=== PATIENT | female | born 1990 | race Hispanic/Latino ===

== ENCOUNTER 2019-12-28 09:09 | Inpatient (IN) | payer MEDICAID, OTHER ==
[~2019-12-28] VITALS: Ht 160 cm; Wt 54.7 kg
[2019-12-28] VITALS (19 sets, daily range): BP systolic 86–161; BP diastolic 41–108
[2019-12-28] MEDS ORDERED: FOSPHENYTOIN SODIUM 500 MG/10ML VIAL IJ ONE (09:26)
[2019-12-28] MEDS ORDERED: ONDANSETRON HCL 4 MG/2 ML VIAL ONE (09:26)
[2019-12-28] MEDS ORDERED: SODIUM CHLORIDE 0.9% 1000ML 1,000 ML IV ONE (09:27)
[2019-12-28 09:29] LABS: BASOPHILS % (AUTO) 0.1 % (0.0-5.0); LYMPHOCYTES % (AUTO) 4.6 % (21.0-51.0); MEAN CORPUSCULAR HEMOGLOBIN 31.2 pg (27.0-33.0); MEAN CORPUSCULAR HGB CONC 32.5 g/dL (32.0-36.0); MEAN CORPUSCULAR VOLUME 95.9 fL (79-99); MONOCYTES % (AUTO) 3.8 % (3.0-13.0); NEUTROPHILS % (AUTO) 90.7 % (40.0-77.0); PLATELET COUNT (AUTO) 319 K/uL (130-400); RED BLOOD CELL COUNT(AUTO) 4.59 MIL/uL (4.00-5.50); RED CELL DISTRIBUTION WIDTH 13.1 % (11.0-15.5); WHITE BLOOD COUNT (AUTO) 15.3 K/uL (4.8-10.8)
[2019-12-28 09:36] LABS: APPEARANCE,URINE CLEAR (CLEAR); BILIRUBIN,URINE Negative (NEGATIVE); COLOR,URINE Yellow (YELLOW); GLUCOSE, URINE (UA) Negative (NEGATIVE); KETONES,URINE 15 mg/dL (NEGATIVE); LEUKOCYTE ESTERASE ,URINE Negative (NEGATIVE); NITRATE,URINE Negative (NEGATIVE); OCCULT BLOOD,URINE Negative (NEGATIVE); PROTEIN,URINE POS 1+ mg/dL (NEGATIVE); UROBILINOGEN,URINE 0.2 mg/dL (0.2-1.0)
[2019-12-28 09:38] LABS: AMPHET/METH SCREEN,URINE NEGATIVE (NEGATIVE); BARBITURATE SCREEN, URINE NEGATIVE (NEGATIVE); BENZODIAZEPINES SCREEN,URINE POSITIVE (NEGATIVE); CANNABINOID SCREEN,URINE NEGATIVE (NEGATIVE); COCAINE SCREEN,URINE NEGATIVE (NEGATIVE); OPIATE SCREEN,URINE NEGATIVE (NEGATIVE); PHENCYCLIDINE SCREEN,URINE NEGATIVE (NEGATIVE)
[2019-12-28 09:51] LABS: ALBUMIN 4.4 g/dL (3.5-5.0); BILIRUBIN,DIRECT 0.2 mg/dL (0.0-0.3); BILIRUBIN,TOTAL 0.6 mg/dL (0.2-1.0); CREATININE 1.3 mg/dL (0.5-1.5); TOTAL PROTEIN, SERUM 9.6 g/dL (6.0-8.3)
[2019-12-28 10:01] LABS: BACTERIA,URINE Rare /HPF (None Seen); RBC,URINE 0-1 /HPF (0-1); SQUAMOUS EPITHELIAL CELL,UR Rare /HPF (0-2); WBC,URINE 0-1 /HPF (0-1)
[2019-12-28] MEDS ORDERED: LORAZEPAM 2 MG/ML 1 ML VIAL ONE (10:21)
[2019-12-28] MEDS ORDERED: PROPOFOL 1000 MG/100 ML 100 ML IV ONE (10:46)
[2019-12-28] MEDS ORDERED: POTASSIUM CHLORIDE 20MEQ/100ML 100 ML IV ONE (10:46)
[2019-12-28] MEDS ORDERED: MAGNESIUM 2GM PREMIX 50ML 50 ML IV ONE (10:46)
[2019-12-28] MEDS ORDERED: CEFTRIAXONE SODIUM 2 GM VIAL ONE (11:18)
[2019-12-28] MEDS ORDERED: SODIUM CHLORIDE 0.9% 100 ML IV ONE (11:18)
[2019-12-28] MEDS ORDERED: ETOMIDATE 2 MG/ML 10 ML VIAL ONE (12:00)
[2019-12-28] MEDS ORDERED: ROCURONIUM BROMIDE 10MG/1ML 5ML VL ONE (12:00)
[2019-12-28] MEDS ORDERED: SODIUM CHLORIDE 0.9% 1000ML 1,000 ML IV SCH (12:29)
[2019-12-28] MEDS ORDERED: HYDRALAZINE HCL 20 MG/ML VIAL IV PRN (12:30)
[2019-12-28] MEDS ORDERED: ONDANSETRON HCL 4 MG/2 ML VIAL IV PRN (12:30)
[2019-12-28] MEDS ORDERED: ACETAMINOPHEN 325 MG TAB PO PRN (12:30)
[2019-12-28 13:07] LABS: ABG BASE EXCESS -4.9 mmol/L (-2.0-3.0); ABG HCO3 18.5 mmol/L (21.0-28.0); ABG OXYGEN SATURATION 99.9 % (95.0-99.0); ABG PCO2 30 mmHg (32-45)
[2019-12-28 13:30] LABS: PHOSPHORUS 4.1 mg/dL (2.5-4.9)
[2019-12-28] MEDS ORDERED: ZOSYN 3.375GM+NS 50ML 50 ML IV ONE (15:47)
[2019-12-28] MEDS ORDERED: ZOSYN 3.375GM+NS 50ML 50 ML IV SCH (16:00)
[2019-12-28] MEDS: PROPOFOL 1000 MG/100 ML 100 ML IV SCH ×2 (17:08→20:49)
[2019-12-28] MEDS ORDERED: LIDOCAINE HCL-MPF 1% 2ML VIAL IV PRN (17:15)
[2019-12-28] MEDS ORDERED: MAGNESIUM 2GM PREMIX 50ML 50 ML IV PRN (17:15)
[2019-12-28] MEDS ORDERED: POTASSIUM CHLORIDE 20MEQ/100ML 100 ML IV PRN (17:15)
[2019-12-28] MEDS ORDERED: FENTANYL CITRATE PF 0.05 MG/ML 1,000 MCG in SODIUM CHLORIDE 0.9% 100 ML PRN (17:15)
[2019-12-28] MEDS ORDERED: FENTANYL 1000MCG+NS 100ML 100 ML ONE (17:40)
[2019-12-28] MEDS ORDERED: LACTATED RINGERS 1000ML 1,000 ML IV ONE (17:41)
[2019-12-28] MEDS: LACTATED RINGERS 1000ML 1,000 ML IV SCH (18:59)
[2019-12-28] MEDS ORDERED: COMPOUND IV MISC 1 EACH IVSOLN MISC PRN (19:00)
--- NOTE | 2019-12-28 19:45 | NUR ---
UPDATE UPON ARRIVAL PT AWAKE RESTLESS ATTEMPTING TO REMOVE ETT. PT NOT RESPONDING TO IV FENTANYL/PROPOFOL SEDATION DESPITE TITRATE UP UNTO MAX DOSE. CONSTANT OBSERVATION NEEDED TO PREVENT PT FROM REMOVING ETT TUBE/LINES. PULMONOLOGY GROUP A-OK PAGED SEVERAL TIME W MESSAGE LEFT TO RETURN CALL. HOSPITALIST MARIBELL BOYD ALSO PAGED AWAITING CALL BACK. DEPARTURE CLERK LINDA MADE AWARE UNABLE TO CONTACT DR. CHASE WITH NUMBERS WE HAVE- NEW NUMBER PROVIDED, CALLED AND VOICE MESSAGE LEFT TO RETURN CALL. [address] CHASE INFORMED OF PT CONDITION/MEDS/AND CRITICAL LABS- NEW ORDERS RECEIVED AND IMPLEMENTED. SPOKE WITH PT MOTHER MITCH GOLDSTEIN, INFORMED HER OF PT CONDITION AND EXAM DR. CHASE ORDERED- TELEPHONE CONSENT RECEIVED FOR CT ABD/PELVIS W CONTRAST. PT LESS RESTLESS WITH ADDITIONAL IV SEDATION. WILL CONTINUE TO MONITOR.
[2019-12-28] MEDS ORDERED: FAMOTIDINE/PF 20 MG/2 ML VIAL IV SCH ×2 (21:00)
[2019-12-28] MEDS ORDERED: SODIUM CHLORIDE 0.9% IVP PRN (21:00)
[2019-12-28] MEDS ORDERED: LORAZEPAM IVP PRN (21:00)
[2019-12-28] MEDS: POTASSIUM CHLORIDE 20MEQ/100ML 100 ML IV PRN (21:14)
[2019-12-28] MEDS: THIAMINE HCL 100 MG/ML 2ML VIAL IVP SCH (21:14)
[2019-12-28] MEDS ORDERED: PHARMACY COMMUNICATION MISC SCH (21:15)
[2019-12-28] MEDS ORDERED: VECURONIUM BROMIDE 10 MG ML IV PRN (21:15)
[2019-12-28] MEDS: FENTANYL 1000MCG+NS 100ML IV.SOLN IV SCH (21:24)
[2019-12-28] MEDS: LEVETIRACETAM 1,000 MG in SODIUM CHLORIDE 0.9% 100 ML IV SCH (21:25)
[2019-12-28] MEDS ORDERED: COMPOUND NARC IV MISC 1 EACH IVSOLN MISC PRN (22:00)
[2019-12-28] MEDS: DEXMEDETOMIDINE HCL 400 MCG in SODIUM CHLORIDE 0.9% 96 ML IV PRN (22:12)
[2019-12-28] MEDS ORDERED: NOREPINEPHRINE 4MG/NS 250ML 250 ML IV ONE (23:27)
[2019-12-28] MEDS: NOREPINEPHRINE 4MG/NS 250ML 250 ML IV PRN (23:42)
[2019-12-29] VITALS (50 sets, daily range): BP systolic 89–123; BP diastolic 40–75
[2019-12-29] MEDS: FENTANYL 1000MCG+NS 100ML IV.SOLN IV SCH ×3 (00:38→08:48)
[2019-12-29] MEDS: PROPOFOL 1000 MG/100 ML 100 ML IV SCH (03:15)
[2019-12-29 05:20] LABS: BASOPHILS % (AUTO) 0.1 % (0.0-5.0); HEMATOCRIT 34.6 % (36-48); LYMPHOCYTES % (AUTO) 20.9 % (21.0-51.0); MEAN CORPUSCULAR HEMOGLOBIN 31.7 pg (27.0-33.0); MEAN CORPUSCULAR HGB CONC 34.4 g/dL (32.0-36.0); MEAN CORPUSCULAR VOLUME 92.3 fL (79-99); MONOCYTES % (AUTO) 8.4 % (3.0-13.0); NEUTROPHILS % (AUTO) 70.1 % (40.0-77.0); PLATELET COUNT (AUTO) 293 K/uL (130-400); RED BLOOD CELL COUNT(AUTO) 3.75 MIL/uL (4.00-5.50); RED CELL DISTRIBUTION WIDTH 13.2 % (11.0-15.5); WHITE BLOOD COUNT (AUTO) 14.6 K/uL (4.8-10.8)
[2019-12-29 05:40] LABS: ALBUMIN 3.2 g/dL (3.5-5.0); CREATININE 0.7 mg/dL (0.5-1.5); MAGNESIUM 2.4 mg/dL (1.80-2.40); POTASSIUM 3.7 mmol/L (3.5-5.1)
[2019-12-29] MEDS: DEXMEDETOMIDINE HCL 400 MCG in SODIUM CHLORIDE 0.9% 96 ML IV PRN (06:16)
[2019-12-29] MEDS: LEVETIRACETAM 1,000 MG in SODIUM CHLORIDE 0.9% 100 ML IV SCH ×3 (06:16→22:29)
[2019-12-29] MEDS ORDERED: DIATR MEGLU/DIATRIZOATE SODIUM 30 ML BOTTLE ONE (08:29)
[2019-12-29] MEDS: LACTATED RINGERS 1000ML 1,000 ML IV SCH (08:42)
[2019-12-29] MEDS: THIAMINE HCL 100 MG/ML 2ML VIAL IVP SCH (08:43)
[2019-12-29] MEDS: ENOXAPARIN SODIUM 40 MG/0.4 ML SYRINGE SQ SCH (08:43)
[2019-12-29] MEDS: NOREPINEPHRINE 4MG/NS 250ML 250 ML IV PRN (08:49)
[2019-12-29] MEDS ORDERED: ENOXAPARIN SODIUM 30 MG/0.3 ML SQ SCH (09:00)
[2019-12-29] MEDS ORDERED: PANTOPRAZOLE 40 MG/VIAL IVP SCH (09:00)
--- NOTE | 2019-12-29 09:00 | NUR ---
PT IS SEDATED/INTUBATED. NO SEIZURE ACTIVITY.COVID WILL BE RESENT FOR RAPID TESTING AT THIS TIME. SEIZURE PRECAUTIONS. PUPILS SLUGGISH SIZE 3
[2019-12-29] MEDS ORDERED: PHARMACY COMMUNICATION MISC SCH (10:30)
--- NOTE | 2019-12-29 10:44 | NUR ---
ROSALINDA PLAN PATIENT IN ICU VENTED GUARDED CONDITION. CM WILL CONTINUE TO FOLLOW. Addendum: 12/29/19 at 1045 by MORIAH FITZGERALD RN CM Amended: Links added.
[2019-12-29] MEDS ORDERED: ALPR2TAB2 PO (10:51)
[2019-12-29] MEDS ORDERED: GABA300S PO (10:51)
[2019-12-29] MEDS ORDERED: LACOSAMIDE 50 MG in SODIUM CHLORIDE 0.9% 50 ML IV SCH ×2 (12:46→21:00)
[2019-12-29] MEDS ORDERED: IOHEXOL-350 75 ML VIAL IV ONE (12:50)
[2019-12-29] MEDS ORDERED: LACOSAMIDE 200 MG/20 ML VIAL IV SCH (13:15)
--- NOTE | 2019-12-29 14:30 | NUR ---
1405 SEDATION OFF, PT EXTUBATED, AFTER BEING ABLE TO TAKE DEEP BREATHS, AND FOLLOWING COMMANDS
[2019-12-29] MEDS ORDERED: LORAZEPAM 2 MG/ML 1 ML VIAL IVP PRN (17:30)
[2019-12-29] MEDS: THIAMINE HCL 100 MG TABLET PO SCH (21:00)
[2019-12-29] MEDS: ONDANSETRON HCL 4 MG/2 ML VIAL IV SCH (21:00)
[2019-12-29] MEDS: ALPRAZOLAM 1 MG TAB PO SCH (22:00)
[2019-12-29] MEDS: ZOSYN 3.375GM+NS 50ML 50 ML IV SCH (22:24)
[2019-12-29] MEDS: LACOSAMIDE 200 MG/20 ML VIAL IV SCH (23:20)
[2019-12-30 04:08] VITALS: BP 106/62
[2019-12-30 04:47] LABS: BASOPHILS % (AUTO) 0.4 % (0.0-5.0); EOSINOPHILS % (AUTO) 0.7 % (0.0-8.0); HEMATOCRIT 31.6 % (36-48); MEAN CORPUSCULAR HEMOGLOBIN 30.7 pg (27.0-33.0); MEAN CORPUSCULAR HGB CONC 32.6 g/dL (32.0-36.0); MEAN CORPUSCULAR VOLUME 94.3 fL (79-99); MONOCYTES % (AUTO) 7.8 % (3.0-13.0); NEUTROPHILS % (AUTO) 53.7 % (40.0-77.0); PLATELET COUNT (AUTO) 146 K/uL (130-400); RED BLOOD CELL COUNT(AUTO) 3.35 MIL/uL (4.00-5.50); RED CELL DISTRIBUTION WIDTH 13.2 % (11.0-15.5); WHITE BLOOD COUNT (AUTO) 5.5 K/uL (4.8-10.8)
[2019-12-30 05:12] LABS: ALBUMIN 2.8 g/dL (3.5-5.0); BILIRUBIN,TOTAL 1.1 mg/dL (0.2-1.0); CREATININE 0.5 mg/dL (0.5-1.5); CRP QUANTITATIVE 107.3 mg/L (0.00-9.0); MAGNESIUM 2.2 mg/dL (1.80-2.40); PHOSPHORUS 3.6 mg/dL (2.5-4.9); POTASSIUM 3.3 mmol/L (3.5-5.1); TOTAL PROTEIN, SERUM 6.3 g/dL (6.0-8.3)
[2019-12-30] MEDS: ALPRAZOLAM 1 MG TAB PO SCH (06:00)
[2019-12-30] MEDS: ZOSYN 3.375GM+NS 50ML 50 ML IV SCH ×3 (06:00→23:59)
[2019-12-30] MEDS: LEVETIRACETAM 1,000 MG in SODIUM CHLORIDE 0.9% 100 ML IV SCH ×3 (06:00→22:23)
[2019-12-30 07:30] VITALS: BP 122/70
[2019-12-30] MEDS: LACOSAMIDE 200 MG/20 ML VIAL IV SCH ×2 (09:00→22:22)
[2019-12-30] MEDS: LACTATED RINGERS 1000ML 1,000 ML IV SCH ×2 (09:15→16:34)
[2019-12-30] MEDS: MULTIVITAMIN TABLET PO SCH (09:16)
[2019-12-30] MEDS: PANTOPRAZOLE SODIUM 40 MG TABLET.DR PO SCH (09:16)
[2019-12-30] MEDS: FOLIC ACID 1 MG TABLET PO SCH (09:16)
[2019-12-30] MEDS: POTASSIUM CHLORIDE 10% ELIXIR 20 MEQ/15 ML UDCUP PO PRN ×2 (09:17→22:23)
[2019-12-30] MEDS: ONDANSETRON HCL 4 MG/2 ML VIAL IV SCH ×2 (09:17→22:22)
[2019-12-30] MEDS: THIAMINE HCL 100 MG TABLET PO SCH ×2 (09:17→22:23)
[2019-12-30] MEDS: ENOXAPARIN SODIUM 40 MG/0.4 ML SYRINGE SQ SCH (09:18)
[2019-12-30 11:00] VITALS: BP 117/67
[2019-12-30] MEDS ORDERED: LACOSAMIDE 200 MG/20 ML VIAL IV SCH (11:45)
--- NOTE | 2019-12-30 12:48 | NUR ---
DCP: HOME WITH FAMILY Sw spoke to pt's mother Andrade Garzon [phone]. Mother reports that pt was in alf for 2yrs in [place] and then went to [place]. Family was contacted and told that pt was in [place] and homeless. Family went to [place] to get pt and brought her back October 31 to stay with mother and aunt.. Since then mother reports that pt has been in and out of [facility] [place] [place] and only getting worse. Mother had appt this am at [facility] and completed application. Mother states that it will be 2 weeks before they have answer. Because of Covid 19, pt has not been able to see a doctor and has no had f/u care. Mother states at home pt was having seizures and convulsions and pt was brought here. "My daughter is very sick". Mother also noted that pt has a hx of Xanax abuse. Plan is home with mother at ri. Addendum: 12/30/19 at 1255 by DELGADO TREVINO Amended: Links added.
[2019-12-30 15:30] VITALS: BP 108/70
--- NOTE | 2019-12-30 16:15 | NUR ---
INFO DURING ROUNDING I NOTICED IV POLE NEXT TO BED, HOWEVER, PATIENT WAS FOUND IN BATHROOM. PATIENT PULLED IV OUT AND ALSO PULLED OUT TINEO CATH WHICH WAS FOUND IN THE TRASH CAN IN THE BATHROOM. PATIENT STATED SHE WAS OK AND KNEW SHE WAS IN A HOSPITAL. PATIENT WAS ASKED IF SHE HAD FALLEN WHICH SHE REPLIED NO. PATIENT WAS HELPED BACK TO BED. THIS WAS THE 4TH IV THE PATIENT HAD PULLED OUT. I NOTIFIED DEB VIRK OF THE INCIDENT.
[2019-12-30] MEDS ORDERED: ONDANSETRON HCL 4 MG/2 ML VIAL IV PRN (18:00)
[2019-12-30] MEDS ORDERED: SINCALIDE 5 MCG ML VIAL IV ONE (20:13)
[2019-12-30 21:26] VITALS: BP 107/58
[2019-12-30 23:00] VITALS: BP 105/60
[2019-12-31 03:00] VITALS: BP 123/69
[2019-12-31 05:06] LABS: BASOPHILS % (AUTO) 0.2 % (0.0-5.0); EOSINOPHILS % (AUTO) 2.1 % (0.0-8.0); HEMATOCRIT 31.6 % (36-48); LYMPHOCYTES % (AUTO) 35.5 % (21.0-51.0); MEAN CORPUSCULAR HGB CONC 33.5 g/dL (32.0-36.0); MEAN CORPUSCULAR VOLUME 92.4 fL (79-99); MONOCYTES % (AUTO) 8.2 % (3.0-13.0); NEUTROPHILS % (AUTO) 53.8 % (40.0-77.0); PLATELET COUNT (AUTO) 187 K/uL (130-400); RED BLOOD CELL COUNT(AUTO) 3.42 MIL/uL (4.00-5.50); RED CELL DISTRIBUTION WIDTH 12.1 % (11.0-15.5); WHITE BLOOD COUNT (AUTO) 4.3 K/uL (4.8-10.8)
[2019-12-31 05:20] LABS: BILIRUBIN,DIRECT 0.6 mg/dL (0.0-0.3); BILIRUBIN,TOTAL 1.2 mg/dL (0.2-1.0); CREATININE 0.6 mg/dL (0.5-1.5); POTASSIUM 3.4 mmol/L (3.5-5.1); TOTAL PROTEIN, SERUM 6.8 g/dL (6.0-8.3)
[2019-12-31] MEDS: PANTOPRAZOLE SODIUM 40 MG TABLET.DR PO SCH (06:25)
[2019-12-31] MEDS: LEVETIRACETAM 1,000 MG in SODIUM CHLORIDE 0.9% 100 ML IV SCH ×3 (06:25→22:14)
[2019-12-31] MEDS: POTASSIUM CHLORIDE 10% ELIXIR 20 MEQ/15 ML UDCUP PO PRN ×2 (06:25→10:26)
[2019-12-31 08:00] VITALS: BP 117/72
[2019-12-31] MEDS: LACOSAMIDE 200 MG/20 ML VIAL IV SCH ×2 (09:00→20:44)
[2019-12-31] MEDS: ZOSYN 3.375GM+NS 50ML 50 ML IV SCH ×2 (09:02→14:57)
[2019-12-31] MEDS: MULTIVITAMIN TABLET PO SCH (10:25)
[2019-12-31] MEDS: THIAMINE HCL 100 MG TABLET PO SCH ×2 (10:25→22:14)
[2019-12-31] MEDS: FOLIC ACID 1 MG TABLET PO SCH (10:26)
[2019-12-31] MEDS: ONDANSETRON HCL 4 MG/2 ML VIAL IV SCH ×2 (10:26→20:17)
[2019-12-31] MEDS: ENOXAPARIN SODIUM 40 MG/0.4 ML SYRINGE SQ SCH (10:35)
[2019-12-31] MEDS ORDERED: LACOSAMIDE 200 MG/20 ML VIAL IV SCH (11:52)
[2019-12-31 12:00] VITALS: BP 115/70
[2019-12-31] MEDS: LACTATED RINGERS 1000ML 1,000 ML IV SCH (12:34)
[2019-12-31] MEDS ORDERED: LACOSAMIDE 200 MG/20 ML IVP SCH ×2 (13:15→21:00)
[2019-12-31 16:00] VITALS: BP 118/79
[2019-12-31 20:15] VITALS: BP 108/65
[2019-12-31] MEDS ORDERED: LACOSAMIDE 200 MG/20 ML VIAL IV ONE (20:33)
[2019-12-31] MEDS ORDERED: HYDROMORPHONE HCL 0.5 MG/0.5 ML ML IVP ONE (21:00)
[2020-01-01] VITALS (7 sets, daily range): BP systolic 109–141; BP diastolic 49–78
[2020-01-01] MEDS: ZOSYN 3.375GM+NS 50ML 50 ML IV SCH ×4 (00:32→21:04)
[2020-01-01 04:36] LABS: BASOPHILS % (AUTO) 0.4 % (0.0-5.0); EOSINOPHILS % (AUTO) 2.4 % (0.0-8.0); HEMATOCRIT 32.4 % (36-48); LYMPHOCYTES % (AUTO) 41.6 % (21.0-51.0); MEAN CORPUSCULAR HEMOGLOBIN 31.1 pg (27.0-33.0); MEAN CORPUSCULAR HGB CONC 34.3 g/dL (32.0-36.0); MEAN CORPUSCULAR VOLUME 90.8 fL (79-99); MONOCYTES % (AUTO) 8.9 % (3.0-13.0); NEUTROPHILS % (AUTO) 46.3 % (40.0-77.0); PLATELET COUNT (AUTO) 195 K/uL (130-400); RED BLOOD CELL COUNT(AUTO) 3.57 MIL/uL (4.00-5.50); WHITE BLOOD COUNT (AUTO) 4.6 K/uL (4.8-10.8)
[2020-01-01 04:52] LABS: BILIRUBIN,TOTAL 0.7 mg/dL (0.2-1.0); CREATININE 0.5 mg/dL (0.5-1.5); POTASSIUM 3.2 mmol/L (3.5-5.1)
[2020-01-01] MEDS: POTASSIUM CHLORIDE 10% ELIXIR 20 MEQ/15 ML UDCUP PO PRN (06:32)
[2020-01-01] MEDS: PANTOPRAZOLE SODIUM 40 MG TABLET.DR PO SCH (06:32)
[2020-01-01] MEDS: LEVETIRACETAM 1,000 MG in SODIUM CHLORIDE 0.9% 100 ML IV SCH ×3 (06:32→21:06)
[2020-01-01] MEDS ORDERED: LEVE500T19 PO (08:23)
[2020-01-01] MEDS ORDERED: GABA600T10 PO (08:25)
[2020-01-01] MEDS ORDERED: ALPR0.5T8 PO (08:25)
[2020-01-01] MEDS: LACTATED RINGERS 1000ML 1,000 ML IV SCH (08:34)
[2020-01-01] MEDS ORDERED: LACOSAMIDE 200 MG/20 ML VIAL IV ONE ×2 (09:02→20:38)
[2020-01-01] MEDS: ONDANSETRON HCL 4 MG/2 ML VIAL IV SCH ×2 (09:09→21:02)
[2020-01-01] MEDS: LACOSAMIDE 200 MG/20 ML VIAL IV SCH ×2 (09:09→21:01)
[2020-01-01] MEDS: ENOXAPARIN SODIUM 40 MG/0.4 ML SYRINGE SQ SCH (09:10)
[2020-01-01] MEDS: ACETAMINOPHEN 325 MG TAB PO PRN ×2 (09:10→17:26)
[2020-01-01] MEDS: THIAMINE HCL 100 MG TABLET PO SCH ×2 (09:10→21:01)
[2020-01-01] MEDS: MULTIVITAMIN TABLET PO SCH (09:10)
[2020-01-01] MEDS: FOLIC ACID 1 MG TABLET PO SCH (09:10)
[2020-01-01] MEDS: POTASSIUM CHLORIDE 20MEQ/100ML 100 ML IV PRN (09:20)
[2020-01-01] MEDS ORDERED: KETOROLAC TROMETHAMINE 30MG/ML ONE (13:14)
[2020-01-01] MEDS ORDERED: KETOROLAC TROMETHAMINE 30MG/ML IV PRN (13:15)
[2020-01-01] MEDS ORDERED: NICOTINE 21 MG/ 24 HR PATCH TD ONE (17:24)
[2020-01-01] MEDS: GABAPENTIN 300 MG CAPSULE PO SCH (21:01)
[2020-01-01] MEDS: ALPRAZOLAM 0.5 MG TABLET PO SCH (21:01)
[2020-01-02 03:50] VITALS: BP 112/58
[2020-01-02 04:52] LABS: BASOPHILS % (AUTO) 0.7 % (0.0-5.0); EOSINOPHILS % (AUTO) 2.7 % (0.0-8.0); HEMATOCRIT 39.2 % (36-48); LYMPHOCYTES % (AUTO) 39.4 % (21.0-51.0); MEAN CORPUSCULAR HEMOGLOBIN 30.6 pg (27.0-33.0); MEAN CORPUSCULAR HGB CONC 31.1 g/dL (32.0-36.0); MEAN CORPUSCULAR VOLUME 98.2 fL (79-99); MONOCYTES % (AUTO) 10.5 % (3.0-13.0); NEUTROPHILS % (AUTO) 46.2 % (40.0-77.0); PLATELET COUNT (AUTO) 187 K/uL (130-400); RED BLOOD CELL COUNT(AUTO) 3.99 MIL/uL (4.00-5.50); RED CELL DISTRIBUTION WIDTH 12.2 % (11.0-15.5); WHITE BLOOD COUNT (AUTO) 4.4 K/uL (4.8-10.8)
[2020-01-02 05:17] LABS: ALBUMIN 3.2 g/dL (3.5-5.0); BILIRUBIN,TOTAL 0.6 mg/dL (0.2-1.0); CREATININE 0.5 mg/dL (0.5-1.5); POTASSIUM 3.6 mmol/L (3.5-5.1); TOTAL PROTEIN, SERUM 7.3 g/dL (6.0-8.3)
[2020-01-02] MEDS: ZOSYN 3.375GM+NS 50ML 50 ML IV SCH ×2 (06:17→14:00)
[2020-01-02] MEDS: LEVETIRACETAM 1,000 MG in SODIUM CHLORIDE 0.9% 100 ML IV SCH ×2 (06:17→14:00)
[2020-01-02] MEDS: LACTATED RINGERS 1000ML 1,000 ML IV SCH (06:31)
[2020-01-02 08:45] VITALS: BP 107/72
[2020-01-02] MEDS ORDERED: NICOTINE 14 MG/ 24 HR PATCH TD SCH (09:00)
[2020-01-02] MEDS: LACOSAMIDE 200 MG/20 ML VIAL IV SCH (10:28)
[2020-01-02] MEDS: FOLIC ACID 1 MG TABLET PO SCH (10:29)
[2020-01-02] MEDS: ALPRAZOLAM 0.5 MG TABLET PO SCH (10:29)
[2020-01-02] MEDS: GABAPENTIN 300 MG CAPSULE PO SCH ×2 (10:29→15:49)
[2020-01-02] MEDS: ONDANSETRON HCL 4 MG/2 ML VIAL IV SCH (10:29)
[2020-01-02] MEDS: MULTIVITAMIN TABLET PO SCH (10:29)
[2020-01-02] MEDS: THIAMINE HCL 100 MG TABLET PO SCH (10:29)
[2020-01-02] MEDS: ENOXAPARIN SODIUM 40 MG/0.4 ML SYRINGE SQ SCH (10:30)
[2020-01-02 11:00] VITALS: BP 109/66
[2020-01-02] MEDS ORDERED: LEVE1000 PO (13:41)
--- NOTE | 2020-01-02 15:05 | NUR ---
NOTE SPOKE TO DR PENDLETON AND HE GAVE ME ORDERS OKAY TO DC WITH KEPPRA AND NEURONTIN AND XANAX. REFER TO CHART FOR ORDERS.
[2020-01-02] MEDS ORDERED: LEVETIRACETAM 500 MG TABLET PO ONE (15:47)
[2020-01-02] MEDS: PANTOPRAZOLE SODIUM 40 MG TABLET.DR PO SCH (15:49)
[2020-01-02 16:56] VITALS: BP 109/68
[2020-01-02] MEDS ORDERED: GABA600T10 PO (17:10)
--- NOTE | 2020-01-02 17:30 | NUR ---
NOTE DISCHARGE INSTRUCTIONS GIVEN TO PATIENT AND MOTHER WAS AT HER SIDE. BOTH VERBALIZED UNDERSTANDING
[2020-01-13 09:31] LABS: HEPATITIS Bs ANTIGEN SCREEN P SEE SEPARATE (Negative)
[2020-01-13 09:32] LABS: HEPATITIS Bs ANTIGEN SCREEN P SEE SEPARATE REPORT (Negative)
== END 2020-01-02 17:55 | disposition home or self-care (01) | DRG 100 ==
LOC: EDH 09:09 → EDHIP 09:10 → 2CH 16:32 → 4BH 12-29 23:50 → 4CH 12-31 21:09
PROVIDERS: ADMIT Internal Medicine; ATTEND Internal Medicine
PROC: 5A1935Z Respiratory Ventilation, Less than 24 Consecutive Hours (ICD-10-PCS; principal; 2019-12-28)
PROC: 0BH17EZ Insertion of Endotracheal Airway into Trachea, Via Natural or Artificial Opening (ICD-10-PCS; 2019-12-28)
DX: G40.911 Epilepsy, unspecified, intractable, with status epilepticus (principal); J96.00 Acute respiratory failure, unspecified whether with hypoxia or hypercapnia; D72.829 Elevated white blood cell count, unspecified; E87.6 Hypokalemia; Z20.828 Contact with and (suspected) exposure to other viral communicable diseases; Z79.899 Other long term (current) drug therapy
CPT/HCPCS: 31500; 36415; 36600; 70450; 71045; 74177; 76705; 78227; 80048; 80053; 80076; 80305; 81001; 82550; 82803; 82948; 83605; 83735; 84100; 84145; 84702; 85025; 86140; 86701; 86706; 87040; 87340; 87390; 87486; 87520; 87581; 87633; 87798; 93005; 94002; 94003; 99291; A9537; C9113; G0378; J0696; J1170; J1650; J1885; J1953; J2060; J2405; J2543; J2704; J2805; J3010; J3411; J3475; J3480; J3490; J7030; J7120; Q2009; Q9963; Q9967